=== PATIENT | female | born 1940 | race Caucasian/White ===

== ENCOUNTER → 2018-10-10 | Outpatient (CLI) | payer MEDICARE, OTHER ==
[~2018-10-10] MED LIST: ADULT LOW DOSE81 MG; ALBUTEROL INH; ALLEGRA ALLERG180 MG; BUSPAR PO; FLONASE; LEXAPRO 10 MG T10 MG PO; LOPRESSOR PO; NORCO 5-325 TA1 EACH PO; PRILOSEC 20 MG20 MG; SYNTHROID125 MCG PO; SYNTHROID50 MCG; TESSALON PERLE100 MG PO; VENTOLIN HFA 1818 GM INH; XANAX; XANAX1 MG PO; ZPAK PO; [UNRECOGNIZED DRUG - REMARK]
== END ==
LOC: M.ULTRA 07:24
DX: K76.0 Fatty (change of) liver, not elsewhere classified (principal); Z90.49 Acquired absence of other specified parts of digestive tract

== ENCOUNTER 2021-04-29 00:38 | Emergency (ER) | payer MEDICARE, OTHER ==
[~2021-04-29] VITALS: Ht 170.2 cm; Wt 81.7 kg
[2021-04-29 02:21] LABS: INFLUENZA A ANTIGEN Negative (Negative); INFLUENZA B ANTIGEN Negative (Negative)
[2021-04-29] MEDS ORDERED: PREDNISONE 20 M20 M1 PO ×2 (02:54→03:01)
[2021-04-29 03:15] VITALS: BP 147/88
== END 2021-04-29 03:15 | disposition home or self-care (01) ==
LOC: M.ERS 00:38
PROVIDERS: Personal Emergency Response Attendant
DX: J45.901 Unspecified asthma with (acute) exacerbation (principal); J06.9 Acute upper respiratory infection, unspecified; I10 Essential (primary) hypertension; E03.9 Hypothyroidism, unspecified; Z79.899 Other long term (current) drug therapy; Z79.82 Long term (current) use of aspirin; Z88.2 Allergy status to sulfonamides; Z87.891 Personal history of nicotine dependence